=== PATIENT | female | born 1960 | race African-American/Black ===

== ENCOUNTER 2018-03-06 17:32 | Emergency (ER) | payer OTHER ==
[~2018-03-06] VITALS: Ht 167.6 cm; Wt 133.2 kg
[~2018-03-06 17:32] MED LIST: ATIVAN 0.50.5 MG/TAB PO; COZAAR100 MG PO; LASIX 20MG TABL20 MG PO; LOZOL 2.5M2.5 MG/TAB PO; PRIL40 PO
[2018-03-06 17:40] VITALS: TEMP 97
[2018-03-06 18:06] LABS: BASO % 0.3 % (0.0-2.0); EOS # 0.1 (0.0-0.7); EOS % 1.1 % (0-4.0); GRAN # 5.9 (1.4-6.5); GRAN % 66.9 % (42.2-75.2); HEMOGLOBIN 12.6 g/dl (12.5-16.0); LYMPH # 2.3 (1.2-3.4); LYMPH % 26.1 % (20.0-51.0); MEAN CELL VOLUME 70 fl (80.0-100.0); MEAN CORPUSCULAR HEMOGLOBIN 24 pg (27.0-31.0); MEAN CORPUSCULAR HGB CONC 34 g/dl (33.0-37.0); MEAN PLATELET VOLUME 9.6 fl (7.4-10.4); MONO # 0.5 (0.1-0.6); MONO % 5.3 % (1.7-9.3); PLATELET COUNT 433 K/mm3 (130-400); RED BLOOD COUNT 5.23 M/mm3 (4.10-5.30); REDCELL DISTRIBUTION WIDTH-CV 17.7 % (11.5-14.5)
[2018-03-06 18:12] LABS: HEMATOCRIT 36.8 % (37.0-47.0)
[2018-03-06 18:18] LABS: ALBUMIN 4.5 gm/dL (3.5-5.0); BILIRUBIN,TOTAL 0.5 mg/dL (0.0-1.0); CREATININE, serum 0.79 mg/dL (0.52-1.25); POTASSIUM 3.2 mmol/L (3.4-5.0); TOTAL PROTEIN 8.2 gm/dL (6.4-8.2)
[2018-03-06 19:40] VITALS: BP 126/65; PULSE 94
[2018-03-06 19:55] LABS: COLLECTION METHOD CLEAN CATCH
[2018-03-06 20:03] LABS: PH 6 (5-8); SQUAMOUS EPITHELIAL 0-2 /hpf; URINE APPEARANCE Hazy; URINE BACTERIA Rare /hpf; URINE BILIRUBIN Negative (NEGATIVE); URINE BLOOD Negative (NEGATIVE); URINE COLOR Yellow; URINE GLUCOSE Negative (NEGATIVE); URINE KETONE Negative (NEGATIVE); URINE LEUKOCYTE ESTERASE Negative (NEGATIVE); URINE NITRATE Negative (NEGATIVE); URINE PROTEIN(semi-quant) Negative (NEGATIVE); URINE RBC None Seen /hpf; URINE UROBILINOGEN Negative (NEGATIVE)
[2018-03-06] MEDS ORDERED: NORCO 325 MG-51 TAB PO (20:31)
[2018-03-06] MEDS ORDERED: VOLTAREN 75 DR75 MG PO (20:31)
[2018-03-06] MEDS ORDERED: FLEXERIL 1010 MG/TAB PO (20:31)
== END 2018-03-06 20:50 | disposition home or self-care (01) ==
LOC: COL.ER
PROVIDERS: Emergency Medicine
DX: S00.83XA Contusion of other part of head, initial encounter (principal); S80.02XA Contusion of left knee, initial encounter; I10 Essential (primary) hypertension; E11.9 Type 2 diabetes mellitus without complications; V43.52XA Car driver injured in collision with other type car in traffic accident, initial encounter
CPT/HCPCS: J1885; J2405; J3010; J7030

== ENCOUNTER → 2018-05-19 | Outpatient (CLI) | payer OTHER ==
[~2018-05-19] MED LIST changes: +FLEXERIL 1010 MG/TAB PO; +NORCO 325 MG-51 TAB PO; +VOLTAREN 75 DR75 MG PO
== END ==
LOC: COL.RAD 07:30
DX: S13.4XXA Sprain of ligaments of cervical spine, initial encounter (principal); M50.21 Other cervical disc displacement, high cervical region; M48.02 Spinal stenosis, cervical region

== ENCOUNTER → 2019-07-08 | Outpatient (CLI) | payer OTHER | LOC: COL.RAD 07:22 | DX: S46.111A Strain of muscle, fascia and tendon of long head of biceps, right arm, initial encounter (principal); M75.121 Complete rotator cuff tear or rupture of right shoulder, not specified as traumatic; M19.011 Primary osteoarthritis, right shoulder ==

== ENCOUNTER → 2022-01-01 | Outpatient (CLI) | payer OTHER | LOC: COL.RAD 14:00 | DX: M17.12 Unilateral primary osteoarthritis, left knee (principal); M94.262 Chondromalacia, left knee ==